=== PATIENT | female | born 2000 | race Caucasian/White ===

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

== ENCOUNTER 2019-02-26 11:43 | Emergency (ER) | payer OTHER ==
[~2019-02-26] VITALS: Ht 154.9 cm; Wt 68.2 kg
[~2019-02-26 11:43] MED LIST changes: -CONRAY-43 43% 50ML VIAL (Q9960) As Ordered; +GABA-845 PO; -PROHANCE 279.3MG/ML 5ML VIAL (A9576) As Ordered; +bcp PO
[2019-02-26] MEDS ORDERED: MORPHINE 4 MG/ML 1ML VIAL/SYRINGE (J2270) IV ONE (12:30)
[2019-02-26 13:02] LABS: BASO # 0.1 10^3/uL (0.0-0.2); BASO % 0.4 % (0.0-1.0); EOS # 0.1 10^3/uL (0.0-0.50); EOS % 0.3 % (0.0-3.0); HEMATOCRIT 41.5 % (36.0-47.0); HEMOGLOBIN 14.2 g/dl (12.0-15.5); LYMPH # 1.6 10^3/uL (1.5-6.5); LYMPH % 10.1 % (24.0-44.0); MEAN CORPUSCULAR HEMOGLOBIN 30.7 pg (27.0-33.0); MEAN CORPUSCULAR HGB CONC 34.2 g/dl (32.0-36.5); MEAN CORPUSCULAR VOLUME 89.6 fl (80.0-96.0); MONO # 0.5 10^3/uL (0.0-0.8); MONO % 3.2 % (0.0-5.0); NEUTROPHILS # 13.4 10^3/uL (1.8-7.7); NEUTROPHILS % 85.5 % (36.0-66.0); PLATELET COUNT, AUTOMATED 335 10^3/uL (150-450); RED BLOOD COUNT 4.63 10^6/uL (4.00-5.40); WHITE BLOOD COUNT 15.6 10^3/uL (4.0-10.0)
[2019-02-26 13:23] LABS: ALBUMIN 4.1 GM/DL (3.2-5.2); BILIRUBIN,DIRECT 0.1 MG/DL (0.0-0.2); BILIRUBIN,TOTAL 0.4 MG/DL (0.2-1.0); C REACTIVE PROTEIN QUANTITATIV 0.52 MG/DL (0.00-0.30); TOTAL PROTEIN 7.2 GM/DL (6.4-8.2)
[2019-02-26 13:24] LABS: ERYTHROCYTE SEDIMENTATION RATE 5 mm/hr (0-20)
[2019-02-26 13:30] LABS: INR 1.06; PROTHROMBIN TIME 13.5 SECONDS (11.8-14.0)
[2019-02-26 13:31] LABS: PARTIAL THROMBOPLASTIN TIME 21.8 SECONDS (25.0-38.4)
[2019-02-26] MEDS ORDERED: NS 1,000 ML IV ONE (14:00)
--- NOTE | 2019-02-26 14:29 | REP ---
Duplex extremity venous ultrasound: Right lower extremity. History: Injection yesterday, pain and swelling. Question DVT. Findings: The deep veins are anechoic and fully compressible from the groin to the popliteal fossa in the right lower extremity. Color flow imaging is homogeneous. Spectral Doppler interrogation demonstrates intact respiratory variation in flow and normal manual augmentation of flow. There is no evidence of deep vein thrombosis. Impression: Negative right lower extremity duplex venous ultrasound. No evidence of deep vein thrombosis. Electronically Signed by Riley Resendez MD 02/26/2019 02:20 P
[2019-02-26] MEDS ORDERED: HYDROMORPHONE HCL 0.5 MG/ 0.5 ML SYRINGE (J1170 PER 1) IV ONE (15:15)
--- NOTE | 2019-02-26 18:57 | REPVR ---
EXAM: MR Right Lower Extremity Without Contrast. Hip EXAM DATE/TIME: 02/26/2019 6:06 PM CLINICAL HISTORY: 19 years old, female; Pain and injury or trauma; Injury history: Pain after injection; Late effect from previous injury; Wound; Right; Without foreign body; Injury date: 02/25/19; Injury details: Pain in RT hip since injection TECHNIQUE: Imaging protocol: MR of the Right lower extremity without intravenous contrast. Exam focused on the hip. COMPARISON: XA HIP ARTHROGRAM WITH MR-CT RIGHT 03/09/2018 7:02 AM XA - HIP ARTHROGRAM WITH MR-CT RIGHT 03/09/2018 7:02:16 AM FINDINGS: Labrum: Unremarkable. No tear. Cartilage: Unremarkable. Fluid: Small to moderate right hip joint effusion. Bones/joints: No acute fracture. No dislocation. Muscles: Unremarkable. Intraperitoneal space: Trace, physiologic amount of free fluid within the pelvis. TENDONS: Extensors: Unremarkable. No tear. Flexors: Unremarkable. No tear. Abductors: Unremarkable. No tear. Adductors: Unremarkable. No tear. Rotators: Unremarkable. No tear. IMPRESSION: Small to moderate right hip joint effusion. Electronically signed by: Zenobia Neil On 02/26/2019 18:56:51 PM
[2019-02-26 20:00] VITALS: BP 115/63
--- NOTE | 2019-03-01 18:21 | ER ---
DATE OF CONSULTATION: 02/26/2019 INDICATION: Right hip pain. HISTORY OF PRESENT ILLNESS: Darleen is a 19-year-old female that underwent what sounds like an image guided intra-articular cortisone injection to her right hip down in [place] possibly via Dr. Estrada. Unclear if that is the actual physician that performed the injection. The patient reports that was her first intra-articular injection. She previously had a psoas injection and she did well with that. About 12 hours after her image guided injection she developed pain. As the morning progressed on 02/26/2019 she developed worsening right hip and groin pain and some bruising around the injection site. The physician apartment assistant manager evaluating her in the emergency department called me in the afternoon explaining the situation. She was afebrile but she seemed to have pain out of proportion to the exam. She had a mildly elevated white count, mildly elevated C-reactive protein, normal sedimentation rate. Any motion of the hip elicited severe pain. The previously obtained MRI of the right hip had showed a labral tear. I asked the ER physician apartment assistant manager to order a stat MRI of the right hip without contrast to evaluate for an effusion and/or hip fluid collection. The patient was told to be nothing by mouth as well. For the patient's full past medical history, past surgical history, medications, allergies, social history and review of systems please see the ER intake form. On exam this is a female who appeared in mild pain. She is alert and oriented times three. She answered questions appropriately. Cardiovascular: 2+ PT pulse. Pulmonary: Nonlabored breathing. The ER physician apartment assistant manager, Ashly, was present for the entire physical exam. Exam of the right hip revealed about a 3-4 cm diameter area of bruising from the direct anterior injection site. There was no significant erythema. The patient was holding her hip flexed about 50 degrees. Any attempt at internal and external rotation elicited significant pain in her groin. The greater trochanter was minimally tender to palpation. She had 5/5 EHL, FHL, TA and GS. Sensation to light touch in the foot and ankle were intact. We requested an MRI of the hip and at the time of the consult recommendations the read was not available. It did show an effusion in the hip. The hip MRI was ultimately read by the radiologist as a small to moderate right hip joint effusion. ASSESSMENT/PLAN: Darleen is a 19-year-old female with severe right hip and groin pain 24 hours status post an intra-articular cortisone injection by a provider down in [place]. I explained to the patient that to have uncontrolled pain after a hip injection there is an immediate concern for infection. I did explain it would be extremely rare to develop an infection this quickly but her C-reactive protein is mildly elevated, white blood cell count mildly elevated, it could be the start of a hip infection. The fact that her pain was extremely difficult to control with IV pain medications in the ER further raises concern for the possibility of a septic hip. My recommendations for the patient were that she should have a hip joint aspiration and be evaluated by a hip specialist who may perform either arthroscopic incision and drainage or a limited open incision and drainage and that I do not perform those procedures. I relayed my recommendations directly to the ER PA that the patient be transferred stat to a hospital in [place] who could provide that care and that the patient should remain nothing by mouth in case her clinical picture deteriorated. The PA expressed understanding of my instructions and was going to arrange the transfer.
== END 2019-02-26 20:05 | disposition short-term general hospital (02) ==
LOC: M ED 11:43
DX: M25.451 Effusion, right hip (principal); Z88.0 Allergy status to penicillin
CPT/HCPCS: 36415; 73721; 80047; 80076; 83605; 84702; 85025; 85610; 85652; 85730; 86140; 93971; 96361; 96374; 96375; 99284; J1170; J2270